=== PATIENT | male | born 1990 | race African-American/Black ===

== ENCOUNTER 2019-12-31 10:32 | Emergency (ER) | payer SELFPAY ==
[~2019-12-31] VITALS: Ht 177.8 cm; Wt 59.0 kg
[2019-12-31] MEDS ORDERED: SODIUM CHLORIDE 0.9% 1,000 ML IV ONE (10:43)
[2019-12-31] MEDS ORDERED: ACETAMINOPHEN 500MG TABLET PO ONE (10:45)
[2019-12-31] MEDS ORDERED: METOCLOPRAMIDE HCL 10MG/2ML VIAL IV ONE (10:45)
[2019-12-31] MEDS ORDERED: DIPHENHYDRAMINE 50MG/ML VIAL IV ONE (10:45)
[2019-12-31 12:27] LABS: BASOPHILS % 0.5 % (0.0-2.0); EOSINOPHILS % 0.5 % (0.0-5.0); HEMATOCRIT. 47.2 % (42.0-52.0); HEMOGLOBIN. 15.9 g/dL (14.0-18.0); LYMPHOCYTES % 14.4 % (20.0-50.0); MEAN CORPUSCULAR HEMOGLOBIN 32.9 pg (28.0-32.0); MEAN PLATELET VOLUME 7.5 fl (7.4-10.4); MONOCYTES % 7.7 % (2.0-8.0); NEUTROPHILS % 76.9 % (40.0-76.0); PLATELET 194 x1000/uL (130-400); RED BLOOD CELL COUNT 4.82 mill/uL (4.7-6.1); RED CELL DISTRIBUTION WIDTH 14.6 % (11.6-14.6)
[2019-12-31 12:37] LABS: INR 1.1; PROTHROMBIN TIME 10.9 sec (9.6-11.0)
[2019-12-31 12:45] VITALS: BP 127/78
[2019-12-31 12:51] LABS: CLARITY URINE CLEAR (CLEAR); COLOR URINE YELLOW (YELLOW); KETONES URINE NEGATIVE (NEGATIVE); LEUKOCYTE ESTERASE URINE 2+ (NEGATIVE); NITRITE URINE NEGATIVE (NEGATIVE); OCCULT BLOOD URINE NEGATIVE (NEGATIVE); PH URINE 6.5 (4.5-8.0); PROTEIN URINE NEGATIVE (NEGATIVE)
[2019-12-31 13:23] LABS: CHLORIDE 106 mEq/L (98-107)
== END 2019-12-31 13:20 | disposition home or self-care (01) ==
LOC: ER 11:11
DX: R51 Headache (principal)
CPT/HCPCS: 36415; 70450; 80053; 81003; 85025; 85610; 87086; 96361; 96374; 96375; 99284; J1200; J2765; J7030